=== PATIENT | female | born 1945 | race Caucasian/White ===

== ENCOUNTER 2018-02-22 19:58 | Emergency (ER) | payer MEDICARE, MEDICAID ==
[2018-02-22 20:16] VITALS: BP 134/64
[2018-02-22] MEDS: ClonazePAM 0.5 MG Tab PO ONE (21:04)
--- NOTE | 2018-02-22 21:27 | EDM.PDOC ---
ED HPI GENERAL MEDICAL PROBLEM - General Chief Complaint: General Stated Complaint: NERVOUS BREAKDOWN? Time Seen by Provider: 02/22/18 20:10 Source of Information: Reports: Patient, Family History Limitations: Reports: No Limitations - History of Present Illness INITIAL COMMENTS - FREE TEXT/NARRATIVE: 72-year-old female is brought in the ER this evening by her children for evaluation of a panic attack. Family states that her father just last Monday and her mother is been having increased anxiety, depression and difficulty coping. She does have a history of anxiety disorder, depression, posttraumatic stress disorder and a history of noncompliance and abuse of her medications. Patient states that she feels sad and feels that her medications that she is supposed to take no longer work for her. She denies suicidal idealization and denies thoughts of harm to herself. She states even though she has not lived many years with her they remained close. She denies any symptoms such as shortness of breath or chest pain. She denies headaches, abdominal pain, nausea or vomiting. She sees Stefany CORRALES for her primary care. There is talked at licensed social worker have been involved and will be coming out to her place to assess her living arrangements. Children state that she has some hoarding in her home. They're concerned that her mother may have taken the rest of their father's medications since his passing into her home. She did not attend the . She denies any use of alcohol or illicit drugs. Onset: Gradual Duration: Day(s):, Getting Worse Location: Reports: Generalized Severity: Moderate Context: Reports: Other (stress) Associated Symptoms: Reports: No Other Symptoms - Related Data Allergies Allergy/AdvReac Type Severity Reaction Status Date / Time alcohol Allergy Cannot Verified 02/22/18 20:12 Remember quinine Allergy Difficulty Verified 02/22/18 20:12 Breathing Sulfa (Sulfonamide Allergy Hives Verified 02/22/18 20:12 Antibiotics) Home Meds: Home Meds ALPRAZolam [Alprazolam] 0.5 mg PO TID 02/22/18 [History] PARoxetine [Paxil] 40 mg PO DAILY 02/22/18 [History] Pramipexole [Mirapex] 0.5 mg PO BID 02/22/18 [History] atorvaSTATin [Lipitor] 10 mg PO BEDTIME 02/22/18 [History] Past Medical History HEENT History: Reports: Sinusitis, Other (See Below) Other HEENT History: sun glasses/glasses Respiratory History: Reports: Other (See Below) Other Respiratory History: pneumonia in past. 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: Musculoskeletal History: Reports: Arthritis Psychiatric History: Reports: Anxiety, Depression, Panic Attack Endocrine/Metabolic History: Reports: Obesity/BMI 30+ - Infectious Disease History Infectious Disease History: Reports: Chicken Pox, Measles - Past Surgical History HEENT Surgical History: Reports: None Female Surgical History: Reports: Hysterectomy Musculoskeletal Surgical History: Reports: None Social & Family History - Tobacco Use Smoking Status *Q: Former Smoker Packs/Tins Daily: 1 Used Tobacco, but Quit: No Tobacco Use Comment: has switch to e-cigaretts - Caffeine Use Caffeine Use: Reports: None - Recreational Drug Use Recreational Drug Use: No ED ROS GENERAL - Review of Systems Review Of Systems: See Below Constitutional: Reports: No Symptoms HEENT: Reports: No Symptoms Respiratory: Reports: No Symptoms Cardiovascular: Reports: No Symptoms Endocrine: Reports: No Symptoms GI/Abdominal: Reports: No Symptoms : Reports: No Symptoms Musculoskeletal: Reports: No Symptoms Skin: Reports: No Symptoms Neurological: Reports: No Symptoms Psychiatric: Reports: Anxiety, Depression. Denies: Homicidal Ideation, Suicidal Ideation Hematologic/Lymphatic: Reports: No Symptoms Immunologic: Reports: No Symptoms ED EXAM, GENERAL - Physical Exam Exam: See Below Exam Limited By: No Limitations General Appearance: Alert, Anxious, Mild Distress, Obese Throat/Mouth: Normal Inspection, Normal Voice Head: Atraumatic Neck: Normal Inspection Respiratory/Chest: No Respiratory Distress Peripheral Pulses: 2+: Radial (L), Radial (R) Back Exam: Normal Inspection Extremities: Normal Inspection Neurological: Alert, Oriented, No Motor/Sensory Deficits, Inattentive. No: Confused Psychiatric: Depressed Mood, Flat Affect Skin Exam: Warm, Dry, Intact Course - Vital Signs Last Recorded V/S: Last Vital Signs Temp 98.7 F 02/22/18 20:14 Pulse 72 02/22/18 20:14 Resp 20 02/22/18 20:14 BP 134/64 02/22/18 20:14 Pulse Ox 95 02/22/18 20:14 - Orders/Labs/Meds Meds: Medications Discontinued Medications Generic Name Dose Route Start Last Admin Trade Name Cristina PRN Reason Stop Dose Admin Clonazepam 0.5 mg 02/22/18 20:55 02/22/18 21:04 Klonopin PO 02/22/18 20:56 0.5 mg ONETIME ONE Administration Departure - Departure Time of Disposition: 21:15 Disposition: Home, Self-Care 01 Condition: Fair Clinical Impression: Panic attack as reaction to stress - Discharge Information Instructions: Generalized Anxiety Disorder, Adult Referrals: Stefany Mathews PA-C [Primary Care Provider] - Forms: ED Department Discharge Additional Instructions: 1. Family will spend the night with Becki. 2. Recommend follow-up with primary care tomorrow. 3. Patient was discharged to home with her family - Assessment/Plan Assessment:: panic attack Plan: 1. Family will spend the night with Becki. 2. Recommend follow-up with primary care tomorrow. 3. Patient was discharged to home with her family
== END 2018-02-22 21:15 | disposition home or self-care (01) ==
LOC: KA.ED 19:58 → SUPCPDRO 19:58 → KA.ED 21:15
DX: F43.0 Acute stress reaction (principal); E66.9 Obesity, unspecified; Z91.048 Other nonmedicinal substance allergy status; Z88.2 Allergy status to sulfonamides; Z88.8 Allergy status to other drugs, medicaments and biological substances; Z87.891 Personal history of nicotine dependence
CPT/HCPCS: 99283; A9270-GY

== ENCOUNTER 2019-03-25 23:15 | Emergency (ER) | payer MEDICAID, MEDICARE ==
[2019-03-25] MEDS ORDERED: Ketorolac 60 MG/2 ML SDV IM ONE (23:42)
--- NOTE | 2019-03-25 23:47 | EDM.PDOC ---
ED HPI GENERAL MEDICAL PROBLEM - General Chief Complaint: General Stated Complaint: s/p fall Time Seen by Provider: 03/25/19 23:25 Source of Information: Reports: Patient, EMS History Limitations: Reports: No Limitations - History of Present Illness INITIAL COMMENTS - FREE TEXT/NARRATIVE: 73 YO WF presents to ER by EMS after fall tonight. Pt was taking out the trash when she lost her footing and fell down 1 step. Pt reports she fell forward using her right arm to break her fall. Pt denies any head or neck injury. Pt reports she had difficulty getting up after her fall prompting her to call EMS. Pt denies ant loss of consciousness. Onset: Today Location: Reports: Upper Extremity, Right, Lower Extremity, Right Quality: Reports: Ache Severity: Mild Improves with: Reports: None, Rest Worsens with: Reports: Movement Context: Reports: Activity Associated Symptoms: Reports: No Other Symptoms - Related Data Allergies Allergy/AdvReac Type Severity Reaction Status Date / Time alcohol Allergy Cannot Verified 03/25/19 23:34 Remember quinine Allergy Difficulty Verified 03/25/19 23:34 Breathing Sulfa (Sulfonamide Allergy Hives Verified 03/25/19 23:34 Antibiotics) Home Meds: Home Meds ALPRAZolam [Alprazolam] 0.5 mg PO TID 02/22/18 [History] Pramipexole [Mirapex] 1 mg PO 2100 02/22/18 [History] atorvaSTATin [Lipitor] 10 mg PO BEDTIME 02/22/18 [History] Citalopram [Citalopram HBr] 20 mg PO DAILY 03/25/19 [History] Past Medical History HEENT History: Reports: Sinusitis, Other (See Below) Other HEENT History: sun glasses/glasses Respiratory History: Reports: Other (See Below) Other Respiratory History: pneumonia in past. 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: Musculoskeletal History: Reports: Arthritis Psychiatric History: Reports: Anxiety, Depression, Panic Attack Endocrine/Metabolic History: Reports: Obesity/BMI 30+ - Infectious Disease History Infectious Disease History: Reports: Chicken Pox, Measles - Past Surgical History HEENT Surgical History: Reports: None Female Surgical History: Reports: Hysterectomy Musculoskeletal Surgical History: Reports: None Social & Family History - Caffeine Use Caffeine Use: Reports: None ED ROS GENERAL - Review of Systems Review Of Systems: See Below Constitutional: Reports: No Symptoms HEENT: Reports: No Symptoms Respiratory: Reports: No Symptoms Cardiovascular: Reports: No Symptoms Endocrine: Reports: No Symptoms GI/Abdominal: Reports: No Symptoms : Reports: No Symptoms Musculoskeletal: Reports: Shoulder Pain, Hand Pain, Leg Pain Skin: Reports: No Symptoms Neurological: Reports: No Symptoms Psychiatric: Reports: No Symptoms Hematologic/Lymphatic: Reports: No Symptoms Immunologic: Reports: No Symptoms ED EXAM, GENERAL - Physical Exam Exam: See Below Exam Limited By: No Limitations General Appearance: Alert, WD/WN, No Apparent Distress Head: Atraumatic, Normocephalic Neck: Normal Inspection, Supple, Non-Tender, Full Range of Motion Respiratory/Chest: No Respiratory Distress, Lungs Clear, Normal Breath Sounds, No Accessory Muscle Use, Chest Non-Tender Cardiovascular: Normal Peripheral Pulses, Regular Rate, Rhythm, No Edema, No Gallop, No JVD, No Murmur, No Rub GI/Abdominal: Normal Bowel Sounds, Soft, Non-Tender, No Organomegaly, No Distention, No Abnormal Bruit, No Mass Back Exam: Normal Inspection, Full Range of Motion, NT Extremities: Normal Range of Motion, No Pedal Edema, Normal Capillary Refill, Other (pain with active range of motion to right shoulder/right knee/right wrist pain). No: Joint Swelling Neurological: Alert, Oriented, CN II-XII Intact, Normal Cognition, Normal Gait, Normal Reflexes, No Motor/Sensory Deficits Psychiatric: Normal Affect, Normal Mood Skin Exam: Warm, Dry, Intact, Normal Color, No Rash Lymphatic: No Adenopathy ED GENERAL MEDICAL PROCEDURES - Splinting Right Upper Extremity Splint Site: right wrist Pre-procedure NV status: Normal Post-procedure NV status: Normal Splint Material: Velcro Splint Design: Volar Applied & Form Fitted By: Provider Provider Post-Splint Application NV Check: NV Status Normal, Good Position Complications: No Course - Vital Signs Last Recorded V/S: Last Vital Signs Temp 36.7 C 03/25/19 23:15 Pulse 61 03/25/19 23:15 Resp 18 03/25/19 23:15 BP 124/44 L 03/25/19 23:15 Pulse Ox 96 03/25/19 23:15 - Orders/Labs/Meds Orders: Active Orders 24 hr Category Date Time Status Knee 3V Rt [CR] Stat Exams 03/25/19 23:42 Ordered Shoulder Comp Rt [CR] Stat Exams 03/25/19 23:42 Ordered Wrist Comp Min 3V Rt [CR] Stat Exams 03/25/19 23:42 Ordered Meds: Medications Discontinued Medications Generic Name Dose Route Start Last Admin Trade Name Freq PRN Reason Stop Dose Admin Ketorolac Tromethamine 60 mg 03/25/19 23:42 Toradol IM 03/25/19 23:43 ONETIME ONE - Radiology Interpretation Free Text/Narrative:: right shoulder- NAD right wrist- NAD right knee- DJD; NAD Departure - Departure Time of Disposition: 00:10 Disposition: Home, Self-Care 01 Condition: Good Clinical Impression: Contusion of wrist, right Qualifiers: Encounter type: initial encounter Qualified Code(s): S60.211A - Contusion of right wrist, initial encounter Knee contusion Qualifiers: Encounter type: initial encounter Laterality: right Qualified Code(s): S80.01XA - Contusion of right knee, initial encounter Right shoulder strain Qualifiers: Encounter type: initial encounter Qualified Code(s): S46.911A - Strain of unspecified muscle, fascia and tendon at shoulder and upper arm level, right arm , initial encounter - Discharge Information Instructions: RICE Therapy for Routine Care of Injuries, [id number], Shoulder Sprain, Contusion, [id number] Forms: ED Department Discharge Additional Instructions: 1. discharge home 2. motrin 600mg PO Q6 PRN pain 3. rest/ice/elevation 4. follow up with PC for further evaluation and treatment 5. return to ER for worsening symptoms - My Orders Last 24 Hours: My Active Orders 03/25/19 23:42 Knee 3V Rt [CR] Stat Shoulder Comp Rt [CR] Stat Wrist Comp Min 3V Rt [CR] Stat - Assessment/Plan Last 24 Hours: My Active Orders 03/25/19 23:42 Knee 3V Rt [CR] Stat Shoulder Comp Rt [CR] Stat Wrist Comp Min 3V Rt [CR] Stat Assessment:: 1. Fall down 1 step 2. right wrist pain 3. right knee pain 4. right shoulder pain Plan: 1. discharge home 2. motrin 600mg PO Q6 PRN pain 3. rest/ice/elevation 4. follow up with PC for further evaluation and treatment 5. return to ER for worsening symptoms
[2019-03-26] MEDS ORDERED: Ibuprofen 600 MG Tab ONE (00:38)
[2019-03-26] MEDS ORDERED: Ibuprofen 600 MG Tab PO ONE (00:50)
--- NOTE | 2019-03-26 07:47 | CR ---
[id number] RAD/RAD Wrist Right 3V Min EXAM: RAD Wrist Right 3V Min CLINICAL DATA: TRAUMA COMPARISON: NO PREVIOUS SIMILAR EXAM IS AVAILABLE. FINDINGS: No fracture or dislocation is seen. There is no radiopaque foreign body in the soft tissues. There is no air in the soft tissues. There is no cortical thickening or periosteal reaction either. IMPRESSION: NEGATIVE PLAIN FILM EXAM. Clifford Cruz MD 03/26/19 0747 Thank you for allowing us to participate in the care of your patient.
--- NOTE | 2019-03-26 07:47 | CR ---
[id number] RAD/RAD Knee Right 3V EXAM: RAD Knee Right 3V CLINICAL DATA: TRAUMA COMPARISON: NO PREVIOUS SIMILAR EXAM IS AVAILABLE. FINDINGS: No fracture or dislocation is seen. There is no radiopaque foreign body in the soft tissues. There is no air in the soft tissues. There is no cortical thickening or periosteal reaction either. IMPRESSION: NEGATIVE PLAIN FILM EXAM. Clifford Cruz MD 03/26/19 0746 Thank you for allowing us to participate in the care of your patient.
--- NOTE | 2019-03-26 07:49 | CR ---
[id number] RAD/RAD Shoulder Right 2V Min EXAM: RAD Shoulder Right 2V Min CLINICAL DATA: TRAUMA COMPARISON: NO PREVIOUS SIMILAR EXAM IS AVAILABLE. FINDINGS: No fracture or dislocation is seen. There is no radiopaque foreign body in the soft tissues. There is no air in the soft tissues. There is no cortical thickening or periosteal reaction either. IMPRESSION: NEGATIVE PLAIN FILM EXAM. Clifford Cruz MD 03/26/19 0748 Thank you for allowing us to participate in the care of your patient.
== END 2019-03-26 00:55 | disposition home or self-care (01) ==
LOC: KA.ED 23:15
DX: S46.911A Strain of unspecified muscle, fascia and tendon at shoulder and upper arm level, right arm, initial encounter (principal); S60.211A Contusion of right wrist, initial encounter; S80.01XA Contusion of right knee, initial encounter; F41.9 Anxiety disorder, unspecified; F32.9 Major depressive disorder, single episode, unspecified; Z79.899 Other long term (current) drug therapy; Z91.09 Other allergy status, other than to drugs and biological substances; Z88.2 Allergy status to sulfonamides; W10.9XXA Fall (on) (from) unspecified stairs and steps, initial encounter
CPT/HCPCS: 73030-RT; 73110-RT; 73562-RT; 96372; 99283; 99284-25; A9270-GY; J1885

== ENCOUNTER 2025-07-24 11:45 | Emergency (ER) | payer MEDICARE, OTHER ==
[2025-07-24] MEDS ORDERED: Sodium Chloride 0.9% 10 ML Syringe FLUSH PRN (12:27)
[2025-07-24 12:37] LABS: BASOPHILS ABSOLUTE AUTO 0.02 10^3/uL (0.00-0.10); BASOPHILS PERCENT AUTO 0.1 % (0.0-1.0); EOSINOPHILS ABSOLUTE AUTO 0.72 10^3/uL (0.10-0.30); EOSINOPHILS PERCENT AUTO 5.3 % (1.0-3.0); IMMATURE GRAN ABSOLUTE AUTO 0.07 10^3/uL (0.00-0.04); IMMATURE GRAN PERCENT AUTO 0.5 % (0.0-0.4); LYMPHOCYTES ABSOLUTE AUTO 1.85 10^3/uL (1.00-4.00); LYMPHOCYTES PERCENT AUTO 13.6 % (20.0-40.0); MEAN PLATELET VOLUME 9.1 fL (7.4-10.4); MONOCYTES ABSOLUTE AUTO 1.84 10^3/uL (0.10-0.80); MONOCYTES PERCENT AUTO 13.5 % (2.0-8.0); NEUTROPHILS ABSOLUTE AUTO 9.13 10^3/uL (2.50-7.00); NEUTROPHILS PERCENT AUTO 67.0 % (50.0-70.0); PLATELET COUNT,PLT 447 10^3/uL (150-400); RED BLOOD CELL COUNT 4.81 10^6/uL (3.80-5.50); RED CELL DISTRIBUTION WIDTH 13.2 % (11.5-14.5); WHITE BLOOD CELL COUNT,WBC 13.63 10^3/uL (5.00-10.00)
[2025-07-24 13:06] LABS: ALANINE AMINOTRANSFERASE,ALT 31.0 U/L (14-63); ASPARTATE AMNIOTRANSFERASE,AST 23.0 U/L (15-37); BILIRUBIN TOTAL 0.8 mg/dL (0.2-1.0); BLOOD UREA NITROGEN,BUN 21.0 mg/dL (7-18); CARBON DIOXIDE,CO2 29.5 mmol/L (21.0-32.0); CHLORIDE,CL 101.0 mmol/L (98-107); CREATININE 0.99 mg/dL (0.51-1.17); EST CRCL DRUG DOSING (CG) 41.46 mL/min; ESTIMATED GFR 58.0 mL/min (>=60); GLUCOSE RANDOM 133.0 mg/dL (70-140); POTASSIUM,K 3.7 mmol/L (3.5-5.1); PROTEIN TOTAL,TP 6.7 g/dL (6.4-8.2); SODIUM,NA 140.0 mmol/L (136-145)
[2025-07-24] MEDS: Ofloxacin 0.3% Ophth Soln 5 ML Bottle EYERT ONE (13:26)
[2025-07-24] MEDS: VANCOmycin 1.25 GM/250 ML 1.25 GM in Premix Bag 1 BAG IV ONE (13:56)
[2025-07-24 15:43] VITALS: BP 108/68; PULSE 79
== END 2025-07-24 16:05 ==
LOC: KA.ED 11:45
DX: L97.529 Non-pressure chronic ulcer of other part of left foot with unspecified severity (principal); E11.52 Type 2 diabetes mellitus with diabetic peripheral angiopathy with gangrene; T74.01XA Adult neglect or abandonment, confirmed, initial encounter; I96 Gangrene, not elsewhere classified; S09.90XA Unspecified injury of head, initial encounter; H10.32 Unspecified acute conjunctivitis, left eye; L12.0 Bullous pemphigoid; E78.00 Pure hypercholesterolemia, unspecified; Z88.8 Allergy status to other drugs, medicaments and biological substances; Z88.2 Allergy status to sulfonamides; Z79.899 Other long term (current) drug therapy; W19.XXXA Unspecified fall, initial encounter
CPT/HCPCS: 36415; 70450; 70486; 71045; 73700-LT; 80053; 82550; 83605; 85025; 86140; 87040; 96361; 96365; 96366; 96367; 99285-25; A9270-GY; J2543; J3375; J7030